=== PATIENT | female | born 1975 | race Caucasian/White ===

== ENCOUNTER 2021-12-08 21:36 | Emergency (ER) | payer OTHER, SELFPAY ==
[2021-12-08] MEDS ORDERED: Ketorolac Tromethamine 30 MG/ML VIAL ONE (22:16)
== END 2021-12-08 22:05 | disposition home or self-care (01) ==
LOC: CSHERS 21:36
DX: M25.562 Pain in left knee (principal); I10 Essential (primary) hypertension; J44.9 Chronic obstructive pulmonary disease, unspecified; G47.30 Sleep apnea, unspecified; E66.01 Morbid (severe) obesity due to excess calories; Z68.45 Body mass index [BMI] 70 or greater, adult; Z79.899 Other long term (current) drug therapy
CPT/HCPCS: 94760; 96372; J1885

== ENCOUNTER 2022-01-09 21:18 | Emergency (ER) | payer SELFPAY ==
[2022-01-09 22:29] LABS: #Basophils 0.1 10x3/uL (0.0-0.2); #Eosinphils 0.3 10x3/uL (0.0-0.5); #Monocytes 0.5 10x3/uL (0.0-1.1); #Neutrophils 3.8 10x3/uL (1.5-8.4); %Basophils 0.9 % (0.0-2.0); %Eosinophils 4.5 % (0.0-6.0); %Lymphocytes 19.9 % (18.0-47.0); %Monocytes 8.9 % (0.0-10.0); %Neutrophils 65.6 % (40.0-75.0); Hemoglobin 14.1 g/dL (12.0-15.5); Mean Corpuscular HGB CONC 30.6 g/dL (32.0-36.0); Mean Corpuscular Hemoglobin 28.6 pg (27.0-33.0); Mean Corpuscular Volume 93.5 fl (81.6-98.3); Mean Platelet Volume 10.8 fl (7.4-10.4); Platelet Count 204 10x3/uL (150-450); RBC Distribution Width 12.9 % (11.5-14.5); Red Blood Cell (RBC) Count 4.93 10x6/uL (3.90-5.03); White Blood Cell (WBC) Count 5.7 10x3/uL (3.5-10.5)
[2022-01-09 22:44] LABS: ALT (SGPT) 12 U/L (8-55); AST (SGOT) 12 U/L (5-34); Albumin 3.5 g/dL (3.5-5.0); Alkaline Phosphatase 63 U/L (40-110); Anion Gap 11 mmol/L (10-20); BUN (Urea Nitrogen) 16 mg/dL (7.0-18.7); Bilirubin, Total 0.3 mg/dL (0.2-1.2); Calc. Creatinine Clearance 0 mL/min (70-130); Calcium 8.8 mg/dL (7.8-10.44); Carbon Dioxide 33 mmol/L (22-29); Chloride 101 mmol/L (98-107); Estimated GFR 94; Globulin 2.3 g/dL (2.4-3.5); Glucose 102 mg/dL (70-105); Potassium 4.8 mmol/L (3.5-5.1); Protein, Total 5.8 g/dL (6.0-8.3); Sodium 140 mmol/L (136-145)
[2022-01-09] MEDS ORDERED: Ketorolac Tromethamine 30 MG/ML VIAL ONE (23:49)
[2022-01-09] MEDS ORDERED: Acetaminophen 500 MG TAB ONE (23:49)
== END 2022-01-10 02:33 | disposition home or self-care (01) ==
LOC: CSHERS 21:18
DX: R60.0 Localized edema (principal); I10 Essential (primary) hypertension; E03.9 Hypothyroidism, unspecified; J44.9 Chronic obstructive pulmonary disease, unspecified; G47.30 Sleep apnea, unspecified; Z79.899 Other long term (current) drug therapy
CPT/HCPCS: 36415; 71045; 80053; 83880; 84484; 85025; 93005; 93970; 96372; J1885

== ENCOUNTER 2022-07-21 21:50 | Emergency (ER) | payer SELFPAY ==
[2022-07-21] MEDS ORDERED: predniSONE 20 MG TAB ONE (22:28)
[2022-07-21] MEDS ORDERED: Ipratropium/Albuterol 3 ML NEB ONE (22:31)
[2022-07-21 22:34] LABS: #Basophils 0.1 10x3/uL (0.0-0.2); #Eosinphils 0.3 10x3/uL (0.0-0.5); #Monocytes 0.7 10x3/uL (0.0-1.1); #Neutrophils 4.5 10x3/uL (1.5-8.4); %Basophils 0.9 % (0.0-2.0); %Eosinophils 4.4 % (0.0-6.0); %Lymphocytes 19.8 % (18.0-47.0); %Monocytes 10.3 % (0.0-10.0); %Neutrophils 64.5 % (40.0-75.0); Hemoglobin 15.1 g/dL (12.0-15.5); Mean Corpuscular HGB CONC 31.9 g/dL (32.0-36.0); Mean Corpuscular Hemoglobin 29.2 pg (27.0-33.0); Mean Corpuscular Volume 91.7 fl (81.6-98.3); Mean Platelet Volume 10.7 fl (7.4-10.4); Platelet Count 219 10x3/uL (150-450); Red Blood Cell (RBC) Count 5.17 10x6/uL (3.90-5.03)
[2022-07-21 22:45] LABS: ALT (SGPT) 11 U/L (8-55); AST (SGOT) 11 U/L (5-34); Albumin 3.5 g/dL (3.5-5.0); Alkaline Phosphatase 57 U/L (40-110); Anion Gap 12 mmol/L (10-20); BUN (Urea Nitrogen) 11 mg/dL (7.0-18.7); Bilirubin, Total 0.3 mg/dL (0.2-1.2); Calc. Creatinine Clearance 0 mL/min (70-130); Carbon Dioxide 31 mmol/L (22-29); Chloride 102 mmol/L (98-107); Estimated GFR 109; Globulin 2.6 g/dL (2.4-3.5); Glucose 95 mg/dL (70-105); Potassium 4.2 mmol/L (3.5-5.1); Protein, Total 6.1 g/dL (6.0-8.3); Sodium 141 mmol/L (136-145)
[2022-07-21 23:08] LABS: SARS-CoV-2 NAA Rapid Test Not Detected (NotDetected)
== END 2022-07-22 00:24 | disposition home or self-care (01) ==
LOC: CSHERS 21:50
DX: J44.1 Chronic obstructive pulmonary disease with (acute) exacerbation (principal); B34.9 Viral infection, unspecified; I10 Essential (primary) hypertension; E03.9 Hypothyroidism, unspecified; Z20.822 Contact with and (suspected) exposure to COVID-19; Z79.890 Hormone replacement therapy; Z79.899 Other long term (current) drug therapy
CPT/HCPCS: 71045; 80053; 83880; 84484; 85025; 93005; 94640; 94760; J7512; J7620

== ENCOUNTER 2023-03-24 00:33 | Emergency (ER) | payer MEDICAID, OTHER ==
[2023-03-24] MEDS ORDERED: Acetaminophen 500 MG TAB ONE (01:13)
[2023-03-24 01:34] LABS: SARS-CoV-2 NAA Rapid Test Not Detected (NotDetected)
[2023-03-24 01:53] LABS: #Basophils 0.1 10x3/uL (0.0-0.2); #Monocytes 0.7 10x3/uL (0.0-1.1); #Neutrophils 9.1 10x3/uL (1.5-8.4); %Basophils 0.5 % (0.0-2.0); %Eosinophils 0.1 % (0.0-6.0); %Lymphocytes 8.9 % (18.0-47.0); %Monocytes 6.5 % (0.0-10.0); %Neutrophils 83.7 % (40.0-75.0); Hematocrit 43.8 % (34.9-44.5); Hemoglobin 14.7 g/dL (12.0-15.5); Mean Corpuscular HGB CONC 33.6 g/dL (32.0-36.0); Mean Corpuscular Hemoglobin 29.4 pg (27.0-33.0); Mean Corpuscular Volume 87.6 fl (81.6-98.3); Mean Platelet Volume 11.6 fl (7.4-10.4); Platelet Count 210 10x3/uL (150-450); RBC Distribution Width 13.1 % (11.5-14.5); White Blood Cell (WBC) Count 10.9 10x3/uL (3.5-10.5)
[2023-03-24 01:57] LABS: Bilirubin Neg (Negative); Blood, Urine Negative (Negative); Glucose, Urine (Dipstick) Normal (Negative); Ketone, Urine 15 mg/dL (Negative); Leukocyte Negative (Negative); Nitrite Negative (Negative); Protein, Urine (Dipstick) Negative (Neg-Trace)
[2023-03-24 02:01] LABS: Clarity Clear (Clear)
[2023-03-24 02:03] LABS: ALT (SGPT) 15 U/L (8-55); AST (SGOT) 16 U/L (5-34); Albumin 3.8 g/dL (3.5-5.0); Alkaline Phosphatase 69 U/L (40-110); Anion Gap 15 mmol/L (10-20); BUN (Urea Nitrogen) 23 mg/dL (7.0-18.7); Bilirubin, Total 0.5 mg/dL (0.2-1.2); Calc. Creatinine Clearance 0 mL/min (70-130); Calcium 8.9 mg/dL (7.8-10.44); Carbon Dioxide 22 mmol/L (22-29); Chloride 102 mmol/L (98-107); Estimated GFR 88; Glucose 127 mg/dL (70-105); Potassium 3.9 mmol/L (3.5-5.1); Protein, Total 6.8 g/dL (6.0-8.3); Sodium 135 mmol/L (136-145)
[2023-03-24 02:14] LABS: Actual Bicarbonate (HCO3v) 23.3 mEq/L (22-28); Base Excess -0.6 mEq/L (-2 - +2); Calcium, Ionized (venous) 1.13 mmol/L (1.16-1.32); Chloride (VBG) 101 mmol/L (98-106); Critical Notified By: CP.PH; Hematocrit-VBG 46 % (36.0-47.0); Hemoglobin (Hb) 15.6 g/dL (11.7-16.0); Puncture Site Other Site; RapidComm Collect By LAB.YY; Sodium 136.7 mmol/L (133-146); pH (venous) 7.428 (7.32-7.43)
[2023-03-24 02:18] LABS: CAUTI Indications for Culture < 2yrs of age; RBC/HPF 0-3 HPF (0-3); Squamous Epithelial 0-3 HPF (0-3)
[2023-03-24 02:19] LABS: Bacteria/HPF Rare-Few HPF (None Seen)
[2023-03-24 02:21] LABS: Urine Culture Reflex Yes Yes
[2023-03-24] MEDS ORDERED: cefTRIAXone (ROCEPHIN) 1 GM VIAL ONE (04:02)
[2023-03-24] MEDS ORDERED: Azithromycin 500 MG VIAL ONE (04:03)
== END 2023-03-24 05:50 | disposition home or self-care (01) ==
LOC: CSHERS 00:33
DX: J18.9 Pneumonia, unspecified organism (principal); Z20.822 Contact with and (suspected) exposure to COVID-19; E03.9 Hypothyroidism, unspecified; I10 Essential (primary) hypertension; J44.9 Chronic obstructive pulmonary disease, unspecified
CPT/HCPCS: 36415; 71046; 80053; 81001; 82805; 85025; 87086; 93005; 94760; J0456; J0696

== ENCOUNTER 2023-03-26 19:36 | Inpatient (IN) | payer OTHER ==
[2023-03-26 20:17] LABS: #Basophils 0.1 10x3/uL (0.0-0.2); #Eosinphils 0.2 10x3/uL (0.0-0.5); #Monocytes 0.5 10x3/uL (0.0-1.1); #Neutrophils 3.1 10x3/uL (1.5-8.4); %Basophils 1.1 % (0.0-2.0); %Eosinophils 4.4 % (0.0-6.0); %Monocytes 8.4 % (0.0-10.0); %Neutrophils 56.9 % (40.0-75.0); Hematocrit 41.6 % (34.9-44.5); Hemoglobin 13.7 g/dL (12.0-15.5); Mean Corpuscular HGB CONC 32.9 g/dL (32.0-36.0); Mean Corpuscular Hemoglobin 29.1 pg (27.0-33.0); Mean Corpuscular Volume 88.5 fl (81.6-98.3); Mean Platelet Volume 11.3 fl (7.4-10.4); Platelet Count 229 10x3/uL (150-450); RBC Distribution Width 12.8 % (11.5-14.5); White Blood Cell (WBC) Count 5.5 10x3/uL (3.5-10.5)
[2023-03-26 20:17] LABS: Actual Bicarbonate (HCO3v) 24.2 mEq/L (22-28); Base Excess 0.5 mEq/L (-2 - +2); Chloride (VBG) 104 mmol/L (98-106); Hematocrit-VBG 43 % (36.0-47.0); Hemoglobin (Hb) 14.6 g/dL (11.7-16.0); Puncture Site Other Site; RapidComm Collect By CBN; Sodium 139.7 mmol/L (133-146); pH (venous) 7.441 (7.32-7.43)
[2023-03-26 20:30] LABS: ALT (SGPT) 12 U/L (8-55); AST (SGOT) 13 U/L (5-34); Albumin 3.5 g/dL (3.5-5.0); Alkaline Phosphatase 59 U/L (40-110); Anion Gap 11 mmol/L (10-20); BUN (Urea Nitrogen) 14 mg/dL (7.0-18.7); Bilirubin, Total 0.4 mg/dL (0.2-1.2); Calc. Creatinine Clearance 0 mL/min (70-130); Calcium 8.4 mg/dL (7.8-10.44); Carbon Dioxide 25 mmol/L (22-29); Chloride 107 mmol/L (98-107); Estimated GFR 107; Globulin 2.4 g/dL (2.4-3.5); Glucose 109 mg/dL (70-105); Potassium 3.7 mmol/L (3.5-5.1); Protein, Total 5.9 g/dL (6.0-8.3); Sodium 139 mmol/L (136-145)
[2023-03-26 21:02] LABS: Troponin I Less than 0.010 ng/mL (< 0.028)
[2023-03-26 21:05] LABS: SARS-CoV-2 NAA Rapid Test Not Detected (NotDetected)
[2023-03-26] MEDS ORDERED: Ondansetron PF 4 MG/2 ML Vial IVP PRN (23:17)
[2023-03-26] MEDS ORDERED: Guaifenesin DM 100-10/5 ML UDCUP PO PRN (23:17)
[2023-03-26] MEDS ORDERED: Calcium Carbonate 500 MG ChewTAB PO PRN (23:17)
[2023-03-26] MEDS ORDERED: Senokot S 8.6-50 MG TAB PO PRN (23:17)
[2023-03-26] MEDS ORDERED: Acetaminophen 325 MG TAB PO PRN (23:17)
[2023-03-26] MEDS ORDERED: Ipratropium/Albuterol 3 ML NEB NEB PRN (23:24)
[2023-03-26] MEDS ORDERED: Ipratropium/Albuterol 3 ML NEB NEB SCH (23:45)
[2023-03-26] MEDS ORDERED: methylPREDNISolone Sod Succ/PF 125 MG/2 ML VIAL IVP SCH (23:45)
[2023-03-27] MEDS: cefTRIAXone\\ROCEPHIN 2 GM in Sodium Chloride 0.9% 100 ML IVPB SCH (00:07)
[2023-03-27 00:37] VITALS: BMI 58.9
[2023-03-27] MEDS: Doxycycline 100 MG in Sodium Chloride 0.9% 100 ML IVPB SCH ×2 (00:45→10:59)
[2023-03-27] MEDS ORDERED: VANCOMYCIN 2 GRAM/400 ML BAG 2 GM in Premix Bag 1 BAG IVPB SCH ×2 (01:30→11:00)
[2023-03-27 04:27] LABS: Legionella Urinary Ag Negative (Negative)
[2023-03-27 04:28] LABS: Strep pneumo Urine Ag NEGATIVE (NEGATIVE)
[2023-03-27 05:44] LABS: #Monocytes 0.1 10x3/uL (0.0-1.1); %Basophils 0.5 % (0.0-2.0); %Eosinophils 0.2 % (0.0-6.0); %Lymphocytes 13.2 % (18.0-47.0); %Monocytes 1.5 % (0.0-10.0); %Neutrophils 84.3 % (40.0-75.0); Hematocrit 43.7 % (34.9-44.5); Hemoglobin 14.1 g/dL (12.0-15.5); Mean Corpuscular HGB CONC 32.3 g/dL (32.0-36.0); Mean Corpuscular Hemoglobin 28.9 pg (27.0-33.0); Mean Corpuscular Volume 89.5 fl (81.6-98.3); Mean Platelet Volume 11.9 fl (7.4-10.4); Platelet Count 269 10x3/uL (150-450); RBC Distribution Width 12.8 % (11.5-14.5); Red Blood Cell (RBC) Count 4.88 10x6/uL (3.90-5.03)
[2023-03-27 06:10] LABS: Anion Gap 12 mmol/L (10-20); BUN (Urea Nitrogen) 18 mg/dL (7.0-18.7); Calc. Creatinine Clearance 225 mL/min (70-130); Calcium 9.3 mg/dL (7.8-10.44); Carbon Dioxide 26 mmol/L (22-29); Chloride 103 mmol/L (98-107); Estimated GFR 101; Glucose 135 mg/dL (70-105); Potassium 4.4 mmol/L (3.5-5.1); Sodium 137 mmol/L (136-145)
[2023-03-27] MEDS: Levothyroxine Sodium 50 MCG TAB PO SCH (06:32)
[2023-03-27] MEDS: Mometasone/Formoterol 200/5 60 PUFF INH SCH ×2 (08:00→20:24)
[2023-03-27] MEDS: predniSONE 20 MG TAB PO SCH (08:31)
[2023-03-27] MEDS: Benzonatate 100 MG CAP PO SCH ×2 (08:31→16:20)
[2023-03-27] MEDS ORDERED: PARoxetine 20 MG TAB PO SCH (09:00)
[2023-03-27] MEDS: Citalopram 20 MG TAB PO SCH (10:58)
[2023-03-27] MEDS: Lisinopril 10 MG TAB PO SCH (10:59)
[2023-03-27] MEDS: hydrOXYzine 25 MG TAB PO SCH (10:59)
[2023-03-27] MEDS ORDERED: VANCOMYCIN 1.75 GM/350 ML BAG 1.75 GM in Premix Bag 1 BAG IVPB SCH ×2 (11:00→23:00)
[2023-03-28] MEDS: Doxycycline 100 MG in Sodium Chloride 0.9% 100 ML IVPB SCH (00:30)
[2023-03-28] MEDS: cefTRIAXone\\ROCEPHIN 2 GM in Sodium Chloride 0.9% 100 ML IVPB SCH (00:32)
[2023-03-28] MEDS: Benzonatate 100 MG CAP PO SCH ×2 (00:32→08:52)
[2023-03-28] MEDS ORDERED: Levothyroxine Sodium 50 MCG TAB PO SCH (06:00)
[2023-03-28] MEDS: Mometasone/Formoterol 200/5 60 PUFF INH SCH (07:30)
[2023-03-28] MEDS: Levothyroxine Sodium 50 MCG TAB PO SCH (07:31)
[2023-03-28] MEDS: Lisinopril 10 MG TAB PO SCH (08:51)
[2023-03-28] MEDS: hydrOXYzine 25 MG TAB PO SCH (08:51)
[2023-03-28] MEDS: Citalopram 20 MG TAB PO SCH (08:52)
[2023-03-28] MEDS: predniSONE 20 MG TAB PO SCH (08:52)
[2023-03-28 10:24] VITALS: BP 124/73; TEMP 97.9
== END 2023-03-28 11:07 | disposition home or self-care (01) | DRG 193 ==
LOC: CSHERS 19:36 → CSHTELE 23:37
PROVIDERS: ADMIT Student in an Organized Health Care Education/Training Program; ATTEND Internal Medicine
PROC: 5A09357 Assistance with Respiratory Ventilation, Less than 24 Consecutive Hours, Continuous Positive Airway Pressure (ICD-10-PCS; principal; 2023-03-28)
DX: J18.9 Pneumonia, unspecified organism (principal); J96.21 Acute and chronic respiratory failure with hypoxia; J44.1 Chronic obstructive pulmonary disease with (acute) exacerbation; J44.0 Chronic obstructive pulmonary disease with (acute) lower respiratory infection; Z68.43 Body mass index [BMI] 50.0-59.9, adult; Z20.822 Contact with and (suspected) exposure to COVID-19; E66.01 Morbid (severe) obesity due to excess calories; G47.33 Obstructive sleep apnea (adult) (pediatric); F41.9 Anxiety disorder, unspecified; F32.A Depression, unspecified; E03.9 Hypothyroidism, unspecified; K21.9 Gastro-esophageal reflux disease without esophagitis; I10 Essential (primary) hypertension; Z99.81 Dependence on supplemental oxygen; Z88.5 Allergy status to narcotic agent; Z79.899 Other long term (current) drug therapy
CPT/HCPCS: 36415; 36416; 71045; 71046; 71275; 80048; 80053; 81001; 82805; 83605; 83880; 84145; 84484; 85025; 87070; 87081; 87086; 87205; 87449; 87899; 93005; 93306; 94640; 94660; 94664; 94760; 96374; 96375; J0456; J0696; J1650; J2930; J3370; J3490; J7512; J7620

== ENCOUNTER 2023-12-14 15:01 | Outpatient (CLI) | payer OTHER ==
[2023-12-14 16:10] LABS: Actual Bicarbonate (HCO3a) 27.1 mEq/L (22-28); Analyzer IN Cardio CS ER; Base Excess (BEa) 1.9 mEq/L (-2.0 to +3.0); CO2 Tension 44.4 mmHg (35.0-45.0); Calcium, Ionized (arterial) 1.15 mmol/L (1.12-1.30); Carboxyhemoglobin (COHb) 0.8 gm% (0.0-3.0); Hematocrit-ABG 44 % (36.0-47.0); Hemoglobin (Hb) 14.9 g/dL (12.0-16.0); O2 Tension (PaO2), arterial 62.7 mmHg (80.0-100.0); Potassium - ABG Lab 4.22 mmol/L (3.70-5.30); Puncture Site RRA; pH, Arterial 7.404 (7.35-7.45)
== END 2023-12-14 15:02 | disposition home or self-care (01) ==
LOC: CSHCP 15:01
PROVIDERS: ATTEND Internal Medicine
DX: J44.9 Chronic obstructive pulmonary disease, unspecified (principal); J98.4 Other disorders of lung
CPT/HCPCS: 36600; 82805; 94060; 94726; 94729; 94760